=== PATIENT | female | born 1980 | race African-American/Black ===

== ENCOUNTER 2018-09-03 12:12 | Emergency (ER) | payer SELFPAY ==
[~2018-09-03] VITALS: Ht 170.2 cm; Wt 59.0 kg
[2018-09-03 12:13] VITALS: BP 134/94
== END 2018-09-03 14:23 | disposition left against medical advice (07) ==
LOC: ER 12:24
DX: Z53.21 Procedure and treatment not carried out due to patient leaving prior to being seen by health care provider (principal)